=== PATIENT | male | born 1955 | race Caucasian/White ===

== ENCOUNTER 2017-06-02 06:17 | Inpatient (IN) ==
--- NOTE | 2017-06-01 16:04 | Discharge Summary ---
<Magali Shields - Last Filed: 06/01/17 16:02> Date of Encounter: 06/01/17 - Discharge Diagnosis (1) Osteoarthritis of knees, bilateral Priority: Primary Status: Chronic Qualifiers: Osteoarthritis type: unspecified Qualified Code(s): M17.0 - Bilateral primary osteoarthritis of knee (2) HTN (hypertension) Priority: Secondary Status: Chronic Qualifiers: Hypertension type: unspecified Qualified Code(s): I10 - Essential (primary ) hypertension (3) Obesity Priority: Secondary Status: Chronic Qualifiers: Obesity type: unspecified obesity type Obesity classification: unspecified obesity classification Serious obesity comorbidity presence: unspecified whether serious comorbidity present Qualified Code(s): E66.9 - Obesity, unspecified (4) Atrial fibrillation Priority: Secondary Status: Chronic Qualifiers: Atrial fibrillation type: unspecified Qualified Code(s): I48.91 - Unspecified atrial fibrillation (5) BRETT on CPAP Priority: Secondary Status: Chronic (6) Tobacco dependency Priority: Secondary Status: Chronic - Discharge Medications Home Medications: Aspirin Enteric Coated [Aspirin EC] 325 mg PO DAILY 21 Days #21 tablet.dr [Rx] OxyCODONE Immed Rel [Roxicodone 5 MG] 5 mg PO Q6HR PRN 7 Days #28 tablet [Rx] Aspirin 325 mg PO DAILY 06/02/17 [History] Diltiazem CD (24hr) [Cardizem CD] 240 mg PO DAILY 06/02/17 [History] Flecainide 100 mg PO Q12HR 06/02/17 [History] Lisinopril [Zestril] 40 mg PO DAILY 06/02/17 [History] Rivaroxaban [Xarelto] 20 mg PO DAILY 06/02/17 [History] Allergies/Adverse Reactions: 3 Allergy/AdvReac Type Severity Reaction Status Date / Time No Known Allergies Allergy Verified 06/02/17 06:37 Primary care physician: PCP NONE - Patient Status Disposition: Home, Self-Care Condition: Good - Discharge Instructions Follow Up With: Magali Shields PAC [Physician Benefits Analyst] - 06/12/17 1:45 pm () Jamie Verde MD [Partnered Physician] - 07/02/17 4:50 pm NONE,PCP [Primary Care Provider] - Additional Instructions: Discharge Instructions: Total Knee Replacement Please call [facility] ([phone]), your Primary Care Physician, or report to the Emergency Room if you have any of the following symptoms: Nausea, vomiting, fever greater that 101.5, swelling, chest pain, shortness of breath, increased pain/redness/drainage/odor for your incision site, numbness/ tingling, or any other concerning symptoms. ACTIVITY:Weight-bearing as tolerated. You may progress off support (crutches or walker) as tolerated. MEDICATIONS: Upon discharge resume your home medications. Take all the medications as prescribed. Take a stool softener if taking narcotic pain medications. Stool softeners are only effective if you drink enough fluids. Drink 6-8 glass of water or fluids a day, unless this is not allowed for another health problem. Despite using stool softeners, if you haven't had a bowel movement in 3 days, please switch to a gentle laxative. Gentle laxatives are sold over the counter. You should have a bowel movement within 24 hours, if not call the office. You will be discharged from the hospital with a prescription for pain medication. You are encouraged to decrease the use of narcotic pain medication as tolerated. Should you require a refill, please call the office. [facility] prescribes narcotic pain medication for only 4-6 weeks after surgery. If you require pain medication beyond this time period, you may be referred to your Primary Care Physician or to the Pain Clinic for further evaluation. Plan ahead for refills on pain medication as many narcotics either need to be picked up at the office or mailed. It is best to call 48-72 hours in advance of needing a prescription refill so you don't run out of medication. To help control the post-operative pain, you may take NSAIDs (Aleve,Advil, Motrin, Ibuprofen, Naprosyn) or Tylenol as prescribed on the bottle in addition to the pain medication. ANTICOAGULATION (blood thinners): Continue your Aspirin, Lovenox or Coumadin as prescribed to help prevent a blood clot in the leg or in the lungs. As long as your incision remains dry and you tolerate the NSAIDs (Aleve, Advil, Motrin, ibuprofen, naprosyn), it is OK to use the NSAIDS while you are taking your anticoagulation medication. Should your incision start to drain, stop the NSAID and contact our office. Common symptoms of blood clot in the legs include: localized pain, swelling, calf tenderness, redness or discoloration of the skin. Blood clot in the lung symptoms include: shortness of breath, rapid pulse, sweating, and chest pain that worsens with deep breathing, coughing up blood, lightheadedness, feelings of anxiety. If you experience any of these symptoms notify your physician immediately, go to the emergency room, or if having trouble breathing, call 911. WOUND CARE: Leave the dressing on for 7 to 10days. You may change the dressing if it becomes saturated greater than 50%. Do not get the dressing wet at anytime. Wash your hands with antibacterial soap, rinse and dry prior to any wound care. If you have nahid the visiting nurse or rehab facility can remove the stapes 10-14 days after surgery and place steri-strips across the wound. Leave the steri-strips in place until they fall off on their won. You may let water from the shower run on top of the steri-strips. If you do not have a visiting nurse or rehab facility, you will need to return to the office at 10-14 days for the nahid to be removed. If you have itching or redness around the dressing call the office. FOLLOW-UP: Please follow up with your surgeon in the orthopedic clinic in 4 weeks from the day of surgery. If you have nahid that need to be removed, you will need to come back to the office in 10-14 days from the day of surgery. - Hospital Course Hospital course: Mr. Hamilton is a 61 year old male - Time Spent with Patient Total time spent providing and/or coordinating discharge services: <Jamie Verde - Last Filed: 06/09/17 06:56> Date of Encounter: 06/09/17 Time of Encounter: 06:54 - Discharge Diagnosis (1) Morbid obesity with BMI of 40.0-44.9, adult Priority: Secondary Status: Chronic (2) Osteoarthritis of knees, bilateral Priority: Primary Status: Chronic Qualifiers: Osteoarthritis type: unspecified Qualified Code(s): M17.0 - Bilateral primary osteoarthritis of knee (3) HTN (hypertension) Priority: Secondary Status: Chronic Qualifiers: Hypertension type: unspecified Qualified Code(s): I10 - Essential (primary ) hypertension (4) Atrial fibrillation Priority: Secondary Status: Chronic Qualifiers: Atrial fibrillation type: unspecified Qualified Code(s): I48.91 - Unspecified atrial fibrillation (5) BRETT on CPAP Priority: Secondary Status: Chronic (6) Tobacco dependency Priority: Secondary Status: Chronic (7) Status post bilateral knee replacements Priority: Primary Status: Acute (8) Acute blood loss anemia Priority: Primary Status: Acute (9) Chronic kidney disease (CKD) stage G1/A1, glomerular filtration rate (GFR) equal to or greater than 90 mL/min/1.73 square meter and albuminuria creatinine ratio less than 30 mg/g Priority: Secondary Status: Chronic (10) Hemolytic anemia Priority: Secondary Status: Chronic Qualifiers: Hemolytic anemia type: acquired, autoimmune, other Qualified Code(s): D59.1 - Other autoimmune hemolytic anemias (11) Status post total bilateral knee replacement Priority: Primary Status: Acute Primary care physician: PCP NONE - Patient Status Functional capacity at discharge: uses cane/walker Overall status at discharge: patient is progressing back to baseline - Hospital Course Hospital course: Mr. Hamilton is a 61 year old male s/p bilateral total knee replacements Patient hematocrit dropped to 22 patient evaluated by oncology has history of hemolytic anemia significant reaction transfusion was recommended to be held unless hemoglobin drop of 7. Patient at discharge hemoglobin is 7.5. Patient minimal symptoms secondary to acute blood loss anemia. Otherwise patient did well received antibiotics and physical therapy was discharged in stable condition. - Time Spent with Patient Total time spent providing and/or coordinating discharge services:
--- NOTE | 2017-06-01 16:16 | Physician Discharge Referral ---
ExtendedCare Referral Info Transfer To: [facility] Provider in Charge: Dr Jamie Verde - Diagnosis (1) Osteoarthritis of knees, bilateral Priority: Primary Status: Chronic (2) HTN (hypertension) Priority: Secondary Status: Chronic (3) Obesity Priority: Secondary Status: Chronic (4) Atrial fibrillation Priority: Secondary Status: Chronic (5) BRETT on CPAP Priority: Secondary Status: Chronic (6) Tobacco dependency Priority: Secondary Status: Chronic (7) Status post bilateral knee replacements Priority: Primary Status: Acute (8) Hemolytic anemia Priority: Secondary Status: Chronic (9) Acute blood loss anemia Priority: Primary Status: Acute Expected Duration of Placement: less than 30 days Prognosis: Good Aware of Diagnosis: Patient Aware of Prognosis: Patient - Transfer Medications Home Medications: Aspirin Enteric Coated [Aspirin EC] 325 mg PO DAILY 21 Days #21 tablet. [Rx] OxyCODONE Immed Rel [Roxicodone 5 MG] 5 mg PO Q6HR PRN 7 Days #28 tablet [Rx] Aspirin 325 mg PO DAILY 06/02/17 [History] Diltiazem CD (24hr) [Cardizem CD] 240 mg PO DAILY 06/02/17 [History] Flecainide 100 mg PO Q12HR 06/02/17 [History] Lisinopril [Zestril] 40 mg PO DAILY 06/02/17 [History] Rivaroxaban [Xarelto] 20 mg PO DAILY 06/02/17 [History] Allergies/Adverse Reactions: 3 Allergy/AdvReac Type Severity Reaction Status Date / Time No Known Allergies Allergy Verified 06/02/17 06:37 - Respiratory Orders Smoking Cessation: Smoking cessation has been advised. For more information, call the [place] Tobacco Quit Line at 3-301-RYUP-NOW. - Lab Orders Lab Orders: CBC (Patient with history of hemolytic anemia and since surgery, postoperative anemia) - Ancillary Orders May use pressure relief devices daily prn, May go on YOLANDA w/family/respon alliance party w /meds at nurse discretion PRN, May consult with Dentist, Fast Food Server, Motorcycle Designer PRN - Mobility Orders Chair, Ambulate - Rehabiliation Orders Rehab Potential: Good Rehab Orders: Evaluation for Physical Therapy, Evaluation for Occupational Therapy Other: Total Knee replacement Precautions x 6 weeks Apply cold therapy wrap 3-6x/day for 20 minutes at a time. Encourage ambulation throughout the day and incentive spirometer 10x/hour. Elevate affected extremity above heart as tolerated. Brace: Wear knee immobilizer at night x 2 weeks. - Treatments Skin tear care topically daily PRN per policy List/Other: Opsite placed. Keep dressing intact until first follow up appointment. If > 50% saturated, notify office, remove dressing and place appropriate dressing back in place. Leave Zipline intact. Opsite dressing is water resistant, not water- proof. OK to shower, but do not get dressing wet. - Diet Orders Regular CERTIFICATION: I certify that the transfer of the above named patient to an Extended Care Facility is necessary for the continuing treatment of the diagnosis listed. The above information is true and accurate reflection of patient's current condition. Confidential - Redisclosure prohibited without a patient's written consent.
[2017-06-02] MEDS ORDERED: Lidocaine -MPF 1% 2 ML VIAL ID ONE (06:26)
[2017-06-02] MEDS ORDERED: CeFAZolin Syr 3,000MG/30 ML 3,000 MG/30 ML SYRINGE IVPB ONE (06:26)
[2017-06-02] MEDS ORDERED: Albuterol 2.5 MG/3 ML NEBULIZER IH ONE ×2 (06:26→10:57)
[2017-06-02] MEDS ORDERED: Plasma-Lyte A (PH 7.4) 1,000 ML IVC SCH ×2 (06:30→11:00)
--- NOTE | 2017-06-02 06:59 | History & Physical Report ---
Date of Encounter: 06/02/17 Time of Encounter: 06:58 24 Hour HP Update - Instructions Instructions: If the History and Physical is less than 30 days old and was completed prior to A.M. admission and or procedure and has NOT been updated on calendar day of procedure please complete this update prior to performing procedure. - Update Patient reports changes in Medical Condition: No Changes in examination, assessment, or condition: No Changes in Medication: No Preop tests/diagnostics Reviewed: Yes Surgery Remains Indicated: Yes Consent for Planned Operative Procedure(s) Verified: Yes - Pre-Operative Checklist Preoperative Checklist Indicated: No Prophylactic Antibiotic Ordered: Yes Is VTE Prophylaxis Indicated?: Yes
[2017-06-02] MEDS ORDERED: Povidone-Iodine 5% 60 ML, Sodium Chloride IRRigation 500 ML IR ONE (08:15)
--- NOTE | 2017-06-02 08:38 | Anesthesia Evaluation PreOp ---
Date of Encounter: 06/02/17 Time of Encounter: 08:36 - Past History Planned Operation: Bilateral Total Knee Arthroplasty Cardiac History: HTN, Hyperlipidemia, Arrhythmia (H/O A-Fib) Pulmonary History: Smoker (40 years), BRETT Dx (uses CPAP) STITCHER HAND History: Denies Any Significant HX Other Medical History: Renal, Other (obesity BMI=43) Anesthesia History: No Prior Anesthetic Complications, Past Anesthesia Alcohol Use: occasionally Drug use: none Medications and Allergies Aspirin Enteric Coated [Aspirin EC] 325 mg PO DAILY 21 Days #21 tablet. [Rx] OxyCODONE Immed Rel [Roxicodone 5 MG] 5 mg PO Q6HR PRN 7 Days #28 tablet [Rx] Aspirin 325 mg PO DAILY 06/02/17 [History] Diltiazem CD (24hr) [Cardizem CD] 240 mg PO DAILY 06/02/17 [History] Flecainide 100 mg PO Q12HR 06/02/17 [History] Lisinopril [Zestril] 40 mg PO DAILY 06/02/17 [History] Rivaroxaban [Xarelto] 20 mg PO DAILY 06/02/17 [History] 3 Allergy/AdvReac Type Severity Reaction Status Date / Time No Known Allergies Allergy Verified 06/02/17 06:37 - Meds/Allergy Pre-op Review Medications Reviewed: Yes Allergies Reviewed: Yes Beta Blockers on Current Med List: No Anesthesia Results - Labs Laboratory Tests 05/21/17 05/21/17 05/21/17 13:54 13:54 13:54 WBC 6.8 Hgb 14.3 Hct 41.8 Plt Count 203 PT 10.7 INR 1.0 APTT 29.5 Sodium 139 Potassium 4.4 BUN 22 H Creatinine 1.36 H - Imaging EKG: report reviewed (05/21/2017 SINUS RHYTHM MODERATE INTRAVENTRICULAR CONDUCTION DELAY NONSPECIFIC ST & T-WAVE ABNORMALITY) Anesthesia Exam O2 Sat Height 1.78 m Height 1.78 m Weight 136.078 kg Weight 136.078 kg O2 Sat by Pulse Oximetry 98 O2 Sat by Pulse Oximetry 98 Vital Signs Temp Pulse Resp BP Pulse Ox 97.9 F 61 18 119/71 98 06/02/17 06:39 06/02/17 06:39 06/02/17 06:39 06/02/17 06:39 06/02/17 06:39 Height: 5'10" Weight: 300 lbs NPO (# of Hours): 8 Pain Scale: 5 (left knee) Pain Scale Used: Numeric (1 - 10) - HEENT Pupil (Motor): EOMI Mallampati: II Teeth: Normal Oral Opening: Greater than 3 - STITCHER HAND LOC: Oriented STITCHER HAND Motor: Normal RUE, Normal LUE, Normal RLE, Normal LLE, Normal Face STITCHER HAND Sensory: Normal: RUE, LUE, RLE, LLE, Face - Cardiac Rhythm: Regular Murmur: Systolic - Pulmonary Breath Sounds: bilateral Clear Respiratory Effort: Symmetrical Anesthesia Assess/Plan ASA Score: 3 Modified Karime Scale for Level of Consciousness: Cooperative, oriented, and tranquil Anesthetic Plan: General, Regional Monitoring Plan: Standard Monitors Recovery Plan: PACU
[2017-06-02] MEDS ORDERED: *HR* Propofol 200 MG/20 ML VIAL IVP ONE ×2 (08:57)
[2017-06-02] MEDS ORDERED: *HR* Midazolam HCl 2 MG/2 ML VIAL ONE (08:57)
[2017-06-02] MEDS ORDERED: Lidocaine -MPF 2% 2 ML VIAL ONE (08:57)
[2017-06-02] MEDS ORDERED: Ondansetron 4 MG/2 ML VIAL ONE (08:57)
[2017-06-02] MEDS ORDERED: Dexamethasone 4 MG/ML VIAL ONE (08:57)
[2017-06-02] MEDS ORDERED: *HR* FentaNYL (PF) 100 MCG/2 ML VIAL ONE ×3 (08:57→11:31)
[2017-06-02] MEDS ORDERED: *HR* Rocuronium Bromide 50 MG/5 ML VIAL ONE (09:00)
[2017-06-02] MEDS ORDERED: *HR* Succinylcholine 200 MG/10 ML VIAL IVP ONE (09:00)
[2017-06-02] MEDS ORDERED: Bupivacaine/Clonidine Syringe 1 EACH SYRINGE ONE (09:49)
[2017-06-02] MEDS ORDERED: Ethanol\\Acetic Acid\\Na Ace\\Ben 1,000 ML IRRIG.SOLN IR ONE (09:57)
--- NOTE | 2017-06-02 10:21 | Anesthesia Procedures ---
Date of Encounter: 06/02/17 Time of Encounter: 09:57 Procedures: Anesthesia - Nerve Block Procedure Date: 06/02/17 Time: 09:57 Allergies/Adv Reactions: nka Pre-op Diagnosis: bilateral knee arthritis Surgical Procedure: bilateral total knee Checklist: Correct Patient Identifier (with Bill Rogers SUPERVISOR ASSEMBLING), Correct procedure, History checked Correct side: Left (Bilateral) Blood Thinner: No Monitor Applied: EKG, BP, Pulse Oximetry Supplemental Oxygen via Nasal Cannula (L/min): 2 Sedation: Versed (mg): 2 Sedation: Fentanyl (mcg): 100 Indication: Post Op Analgesia Pre-op Neuro Deficits: No Block Type: Femoral Catheter placed: No Sterile Technique: Yes Ultrasound used: Yes Anatomy identified: Yes Visual spread of Local: Yes Neuro Stimulation: Yes Nerve Stimulator Range: 0.2 - 0.4 mA Blood on Needle Aspiration: No Smooth Injection of Local: Yes Pain with Injection of Local: No Prep: Chlorhexadine Needle: 22 x 50 mm Stimuplex, 21 x 100 mm Stimuplex Local: 0.25% Bupivicaine w/Clonidine 20 mcg/cc (40 ml for each leg) Volume (cc): 80 Number of Attempts: 1 Complications: None/effective block Vitals: see nurses notes Comments: patient tolerated well
[2017-06-02] MEDS ORDERED: EPHEDrine 50 MG/ML VIAL ONE ×2 (10:47→11:43)
[2017-06-02] MEDS ORDERED: Naloxone 0.4 MG/ML INJ IVP PRN ×2 (10:57→14:39)
[2017-06-02] MEDS ORDERED: Ondansetron 4 MG/2 ML VIAL IVP ONE (10:57)
--- NOTE | 2017-06-02 12:34 | Orthopedic Operative Note ---
Date of procedure: 06/02/17 Pre-op diagnosis: Bilateral knee arthritis Post-op diagnosis: same Procedure: Procedure: Bilateral robotic-assisted Total knee replacement Estimated blood loss: 800 cc Hardware: Metal and polyethylene replacement. Mimbres Femur: 6 Tibia: 7 TS insert: 9 Patella: 339 Exam Under anesthesia: Left knee flexion contracture 8 degrees varus 5 degrees, right knee flexion contracture 7 degrees 3 degrees varus as calculated by the robot full flexion and no instability Procedural Notes: Grade 4 arthritic changes all 3 compartments in both knees. Operative procedure: The patient was brought to the operating room and placed on the operating room table. After general anesthesia was administered the operative knee was examined. Findings were noted in the exam under anesthesia. The operative extremity was prepped and draped in sterile surgical fashion. Surgery began with the left knee followed by the right knee. Any differences will be highlighted. The patient received IV antibiotics prior to skin incision. A standard midline incision was made centered over the patella. The incision was made through the skin and subcutaneous tissue. A medial parapatellar tendon approach was performed. Care was taken to preserve tissue along the medial aspect of the patella. And to protect the patella tendon. The deep MCL was released off the medial tibia. The infra patella fat pad was excised. The patella was everted and cut was made at the level of the insertion of the quadriceps and patella tendon. The patella was sized to 39 bilaterally the guide was seated and the lug holes are drilled. Knee was brought into flexion. Patient noted to have grade 4 arthritic changes in both knees. In all 3 compartments. Steinmann pins were placed in the tibia and the femur for the tibial and femoral arrays respectively. Checkpoints were also placed in the tibia and the femur for calculation purposes. The knee including the femur and the tibial registered. Osteophytes , ACL and PCL were excised at this point. Extension and flexion were assessed with a valgus stress components were adjusted on the computer to balance the knee. Femoral cuts were made first with robotic assistance, these included the anterior cut posterior cuts chamfer cuts. Tibial cut was then performed with robotic assistance as well. Bone fragments were removed, as well as the medial and lateral meniscus. The size 6 femoral guide was seated box cut was made lug holes are drilled. The size 7 tibial tray was seated and prepared with the fin cutter. Trial reduction with the 9 TS Mignon revealed extension loss of 2 degree in either knee and full flexion. No varus valgus instability. Trial reduction revealed excellent patella tracking. All trial components were removed all bony surfaces were irrigated. The Tibia was seated followed by the femur, The Mignon size 9 was seated and secured patella was seated. Patient had similar findings for motion and stability. The knee was closed by the PA. The knee was then irrigated out with 2 L of pulse irrigation. The extensor mechanism was closed with #2 FiberWire suture and #2 PDS suture. The subcutaneous tissue was then irrigated and closed deep with #1 PDS suture superficially with 0 PDS suture and skin was closed with zip tie The patient was then placed in a sterile dressing and a postoperative brace extubated and transferred to recovery room in stable condition. Anesthesia: GETA Surgeon: Jamie Verde Was there an commercial lending assistant present: Yes Hedge Fund Trader: Magali Shields Estimated blood loss (cc): 800 Condition: stable Disposition: PACU
[2017-06-02] MEDS: *HR* HYDROmorphone (PF) 1 MG/ML SYRINGE IVP PRN ×6 (13:19→13:52)
[2017-06-02] MEDS ORDERED: Ringers Solution, Lactated 1,000 ML ONE (13:47)
[2017-06-02 13:53] LABS: Hematocrit 37.4 % (37.5-50.1); Hemoglobin 12.5 g/dL (12.9-16.9)
--- NOTE | 2017-06-02 14:04 | Anesthesia Evaluation Post Op ---
Date of Encounter: 06/02/17 Time of Encounter: 14:03 - Vital Signs Vital Signs: Selected Entries 06/02/17 13:40 06/02/17 13:50 Temperature 98.0 F Pulse Rate 74 Respiratory Rate 18 Blood Pressure 126/77 O2 Sat by Pulse Oximetry 94 Oxygen Flow Rate (LPM) 2 - Lungs Lungs: Clear Ascult./Percussion - Airway Airway: Non-obstructed - Cardiovascular Regular Rate - Mental Status Mental Status: Alert & Oriented, Answers Appropriately - Pain Pain Scale: 5 Pain Scale used: Numeric (1 - 10) - Nausea Vomiting Nausea Vomiting: Not Present - Hydration Hydration: Ice chips, Has not voided - Discharge PostOp Status: Transfer Patient to floor
[2017-06-02] MEDS ORDERED: Sennosides 8.6 MG TABLET PO PRN (14:39)
[2017-06-02] MEDS ORDERED: Temazepam 15 MG CAPSULE PO PRN (14:39)
[2017-06-02] MEDS ORDERED: MOM Conc 10 ML UD.LIQ PO PRN (14:39)
[2017-06-02] MEDS ORDERED: Ondansetron 4 MG/2 ML VIAL IVP PRN (14:39)
[2017-06-02] MEDS: Diltiazem CD (24hr) 240 MG CAPSULE PO SCH (16:08)
[2017-06-02] MEDS: Lisinopril 20 MG TABLET PO SCH (16:48)
[2017-06-02] MEDS: *HR* OxyCODONE Immed Rel 15 MG TABLET PO PRN ×2 (16:52→21:22)
[2017-06-02] MEDS: *HR* Rivaroxaban 10 MG TABLET PO SCH (16:52)
[2017-06-02] MEDS: Aspirin 325 MG TABLET PO SCH (16:53)
[2017-06-02] MEDS: CeFAZolin Syr 3,000MG/30 ML 3,000 MG/30 ML SYRINGE IVPB SCH (23:38)
[2017-06-03] MEDS ORDERED: ceFAZolin 3,000 MG in D5% in Water 100 ML IVPB SCH
[2017-06-03] MEDS: *HR* OxyCODONE Immed Rel 15 MG TABLET PO PRN ×5 (01:01→21:34)
[2017-06-03 06:39] LABS: Calcium 8.4 mg/dL (8.6-10.3); Potassium 4.7 mEq/L (3.5-5.1)
[2017-06-03 06:44] LABS: Hemoglobin 10.6 g/dL (12.9-16.9)
--- NOTE | 2017-06-03 07:04 | Orthopedics Progress Note ---
Date of Encounter: 06/03/17 Time of Encounter: 07:03 - Assessment and Plan (1) Morbid obesity with BMI of 40.0-44.9, adult Current Visit: Yes Status: Chronic (2) Osteoarthritis of knees, bilateral Current Visit: No Status: Chronic Qualifiers: Osteoarthritis type: unspecified Qualified Code(s): M17.0 - Bilateral primary osteoarthritis of knee (3) HTN (hypertension) Current Visit: No Status: Chronic Qualifiers: Hypertension type: unspecified Qualified Code(s): I10 - Essential (primary ) hypertension (4) Atrial fibrillation Current Visit: No Status: Chronic Qualifiers: Atrial fibrillation type: unspecified Qualified Code(s): I48.91 - Unspecified atrial fibrillation (5) BRETT on CPAP Current Visit: No Status: Chronic (6) Tobacco dependency Current Visit: No Status: Chronic (7) Status post bilateral knee replacements Current Visit: No Status: Acute (8) Acute blood loss anemia Current Visit: Yes Status: Acute Subjective Interval history: Patient was seen this morning doing well without complaints. Afebrile vital signs stable. Operative extremity: Neurovascularly intact Dressing bloody, both dressings changed Calves nontender Assessment and plan: Continue with postoperative care Hematocrit 31 Objective Vital signs: Vital Signs Temp Pulse Resp BP Pulse Ox 06/03/17 06:42 98.8 F 73 15 117/66 95 06/03/17 04:27 98.3 F 64 18 101/59 98 06/02/17 23:59 98.4 F 68 16 100/58 97 06/02/17 19:35 97.6 F 70 18 126/55 95 06/02/17 17:55 97.6 F 76 16 100/56 96 06/02/17 17:01 97.6 F 66 18 115/76 94 06/02/17 15:49 97.9 F 69 17 119/76 94 06/02/17 15:14 97.7 F 67 16 116/70 94 06/02/17 14:45 97.6 F 74 16 110/69 95 06/02/17 14:40 97.6 F 74 16 110/69 95 06/02/17 14:20 76 18 128/76 94 06/02/17 14:10 98.0 F 78 16 121/71 96 06/02/17 14:00 68 18 117/74 93 06/02/17 13:50 74 18 126/77 94 06/02/17 13:40 98.0 F 76 18 131/83 96 06/02/17 13:30 83 22 118/89 94 06/02/17 13:20 84 20 115/78 96 06/02/17 13:10 98.3 F 81 20 128/78 96 06/02/17 10:20 54 18 102/59 93 06/02/17 09:48 61 18 117/69 99 Intake and Output 06/02/17 06/02/17 06/03/17 15:59 23:59 07:59 Intake Total 530 / 530 0 / 0 Output Total 800 / 800 600 / 600 425 / 425 Balance -800 / -800 -70 / -70 -425 / -425 Intake: Oral 530 / 530 0 / 0 Output: Urine 0 / 0 600 / 600 425 / 425 Estimated Blood Loss 800 / 800 - Labs CBC & BMP: 06/03/17 06:17 06/03/17 06:17 Labs: Abnormal lab results Hgb 10.6 g/dL (12.9-16.9) L D 06/03/17 06:17 Hct 31.0 % (37.5-50.1) L 06/03/17 06:17 BUN 36 mg/dL (6-20) H 06/03/17 06:17 Creatinine 2.15 mg/dL (0.70-1.30) H 06/03/17 06:17 Est GFR ( Amer) 38 (> 60) L 06/03/17 06:17 Est GFR (Non-Af Amer) 32 (> 60) L 06/03/17 06:17 Glucose 124 mg/dL (70-105) H 06/03/17 06:17 Calcium 8.4 mg/dL (8.6-10.3) L 06/03/17 06:17 - VTE Documentation of Mechanical Device: Venous foot pump, device Consult Discharge Plan - Plan Referrals: NONE,PCP [Primary Care Provider] -
[2017-06-03] MEDS ORDERED: Water for inj. (sterile) 30 ML IV ONE (08:36)
[2017-06-03] MEDS: Diltiazem CD (24hr) 240 MG CAPSULE PO SCH (08:40)
[2017-06-03] MEDS: Aspirin 325 MG TABLET PO SCH (08:40)
[2017-06-03] MEDS: *HR* Rivaroxaban 10 MG TABLET PO SCH (08:40)
[2017-06-03] MEDS: Lisinopril 20 MG TABLET PO SCH (08:40)
[2017-06-03] MEDS: CeFAZolin Syr 3,000MG/30 ML 3,000 MG/30 ML SYRINGE IVPB SCH (08:44)
[2017-06-03] MEDS: Mag Hydrox/Al Hydrox/Simeth 30 ML UDC PO PRN ×2 (13:29→21:29)
--- NOTE | 2017-06-03 17:03 | Event Note ---
Date of Encounter: 06/03/17 Time of Encounter: 12:00 PCR- POD#1 s/p bl TKR robotic Ammon 06/02/17 PCR - Patient seen at bedside. Pain control: Adequate. Requesting additional breakthrough meds - will trial Cyclobenzaprine Participating in PT. All questions and concerns addressed. Educated on use of incentive spirometer, ambulation, and hydration. Patient educated on post-operative restrictions and care. Addressed: Reflux and belching - patient states been going on since last night - recommended trial Pepcid and Maalox PRN. Right knee dressing saturated - nursing staff applied pressure dressing. Requested change every 6 hours, once drainage stops, cleanse incision and apply honeycomb dressing. D/C plan: ECF - poss tomorrow if continues to improve and auth obtained.
[2017-06-03] MEDS: Ringers Solution, Lactated 1,000 ML IVC SCH (21:29)
[2017-06-04] MEDS: *HR* OxyCODONE Immed Rel 15 MG TABLET PO PRN ×5 (01:48→23:45)
[2017-06-04 05:40] LABS: Hematocrit 27.5 % (37.5-50.1)
[2017-06-04 05:45] LABS: Calcium 8.5 mg/dL (8.6-10.3); Potassium 4.6 mEq/L (3.5-5.1)
[2017-06-04] MEDS: Lisinopril 20 MG TABLET PO SCH (08:36)
--- NOTE | 2017-06-04 08:39 | Orthopedics Progress Note ---
Date of Encounter: 06/04/17 Time of Encounter: 08:39 - Assessment and Plan (1) Morbid obesity with BMI of 40.0-44.9, adult Current Visit: Yes Status: Chronic (2) Osteoarthritis of knees, bilateral Current Visit: No Status: Chronic Qualifiers: Osteoarthritis type: unspecified Qualified Code(s): M17.0 - Bilateral primary osteoarthritis of knee (3) HTN (hypertension) Current Visit: No Status: Chronic Qualifiers: Hypertension type: unspecified Qualified Code(s): I10 - Essential (primary ) hypertension (4) Atrial fibrillation Current Visit: No Status: Chronic Qualifiers: Atrial fibrillation type: unspecified Qualified Code(s): I48.91 - Unspecified atrial fibrillation (5) BRETT on CPAP Current Visit: No Status: Chronic (6) Tobacco dependency Current Visit: No Status: Chronic (7) Status post bilateral knee replacements Current Visit: No Status: Acute (8) Acute blood loss anemia Current Visit: Yes Status: Acute Subjective Interval history: Patient was seen this morning doing well without complaints. Afebrile vital signs stable. Operative extremity: Neurovascularly intact Dressing bloody, both dressings changed Calves nontender Assessment and plan: Continue with postoperative care Hematocrit 27 transfuse 2 units packed red blood cells Objective Vital signs: Vital Signs Temp Pulse Resp BP Pulse Ox 06/04/17 07:30 98.3 F 68 18 103/57 98 06/04/17 05:09 98.2 F 94 17 109/52 100 06/04/17 00:09 98.3 F 74 17 120/66 96 06/03/17 19:34 98.5 F 80 15 113/54 94 06/03/17 15:00 98.1 F 71 15 114/61 96 06/03/17 10:35 98.5 F 82 15 124/74 97 Intake and Output 06/03/17 06/04/17 06/04/17 23:59 07:59 15:59 Intake Total 240 / 240 Output Total 420 / 420 1260 / 1260 Balance -180 / -180 -1260 / -1260 Intake: Oral 240 / 240 Output: Urine 420 / 420 1260 / 1260 Other: Meal Dinner Percent of Meal Consumed 100% - Labs CBC & BMP: 06/04/17 05:00 06/04/17 05:00 Labs: Abnormal lab results Hgb 9.0 g/dL (12.9-16.9) L D 06/04/17 05:00 Hct 27.5 % (37.5-50.1) L 06/04/17 05:00 Sodium 135 mEq/L (136-145) L 06/04/17 05:00 BUN 43 mg/dL (6-20) H 06/04/17 05:00 Creatinine 2.07 mg/dL (0.70-1.30) H 06/04/17 05:00 Est GFR ( Amer) 40 (> 60) L 06/04/17 05:00 Est GFR (Non-Af Amer) 33 (> 60) L 06/04/17 05:00 Glucose 117 mg/dL (70-105) H 06/04/17 05:00 Calcium 8.5 mg/dL (8.6-10.3) L 06/04/17 05:00 - VTE Documentation of Mechanical Device: Venous foot pump, device Consult Discharge Plan - Plan Referrals: NONE,PCP [Primary Care Provider] -
[2017-06-04] MEDS: Aspirin 325 MG TABLET PO SCH (08:42)
[2017-06-04] MEDS: Diltiazem CD (24hr) 240 MG CAPSULE PO SCH (08:42)
[2017-06-04] MEDS ORDERED: Furosemide 20 MG/2 ML VIAL IVP PRN (08:43)
[2017-06-04] MEDS ORDERED: 0.9 % Sodium Chloride 250 ML IVC SCH (08:45)
--- NOTE | 2017-06-04 15:00 | Event Note ---
Date of Encounter: 06/04/17 Time of Encounter: 12:00 PCR- POD#2 s/p bl TKR cam Verde 06/02/17 PCR - Patient seen at bedside. Pain control: Adequate but still requesting additional breakthrough meds - Cyclobenzaprine helping Labs: H/H - 9.0/27.5 - plan for 2 units RBC transfusion. Patient states he does have hemolytic anemia and has been told in the past that he required prednisone with previous transfusions. Attempted to contact his previous managing provider for treatment recommendations but patient has not been seen there since 2011 and they would not offer assistance without seeing patient. DIEUDONNE David spoke with [facility] and they agreed to evaluate patient for further treatment recommendations before he receives the transfusion. Awaiting 2 units of RBC without antibodies from [facility]. Participating in PT. All questions and concerns addressed. Educated on use of incentive spirometer, ambulation, and hydration. Patient educated on post-operative restrictions and care. Addressed: Reflux and belching yesterday improved with Pepcid and Maalox PRN. Coughing spell he mentioned yesterday likely related to the reflux. He does have new left calf tenderness to palpation today. Will order doppler for possible DVT. D/C plan: MADISON Ibarra - jessica tomorrow, auth obtained.
[2017-06-04 15:37] LABS: Bilirubin,Urine Negative (Negative); Blood,Urine Negative (Negative); Clarity,Urine Clear (Clear); Color,Urine Yellow (Yellow); Glucose,Urine (UA) Normal (Normal); Ketones,Urine Negative (Negative); Leukocyte Esterase,Urine Negative (Negative); Nitrite,Urine Negative (Negative); Protein,Urine Trace mg/dL (Neg-Trace); Urobilinogen,Urine Normal (Normal)
[2017-06-04 15:39] LABS: Bacteria,Urine None Seen per hpf (None-Few); Hyaline Casts,Urine None Seen per lpf (None-Few); RBC,Urine 0-3 per hpf (0-3); Squamous Epithelial Cell,Urine None Seen per lpf (None-Few); WBC,Urine 0-3 per hpf (0-3)
[2017-06-04] MEDS: Ringers Solution, Lactated 1,000 ML IVC SCH (16:25)
[2017-06-04 16:48] LABS: Immature Reticulocyte % 18.4 % (11.0-38.0); Retculocyte # 0.04 M/mcL (0.05-0.10); Reticulocyte % 1.5 % (1.6-2.8)
[2017-06-04] MEDS: *HR* Rivaroxaban 15 MG TABLET PO SCH (18:04)
--- NOTE | 2017-06-04 21:35 | Oncology Inp Consult Note ---
Date of Encounter: 06/04/17 Time of Encounter: 17:00 Assessment and Plan (1) Acute blood loss anemia Status: Acute Assessment and plan: Blood loss anemia secondary to bilateral TKA 06/02/17. LDH is normal making hemolysis very unlikely. No need for therapy. Awaiting haptoglobin to complete workup. Would avoid transfusion secondary to history as well as associated immune effects related to blood transfusion seen in surgery. Would only transfuse if hemoglobin <7 and with symptoms. - Data of Consult Requesting Physician: Jamie Verde MD Primary Care Provider: PCP NONE - Consult Narrative Reason for consult: Anemia History of present illness: Mr. 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 He underwent bilateral knee replacement 06/02/17 with 800 cc blood loss. Hemoglobin decreased from a preop value of 12 to 9. Has had minimal oozing of blood from his right knee wound, but denies any other bleeding. No epistaxis, hemoptysis, hematemesis, melena or hematochezia. No easy bruising. Secondary to his history of anemia, consult hs been requested. Past Med Surg Social Fam HX - Past Medical History Medical history: atrial fibrillation, hypertension Psychiatric history: no psych history - Past Surgical History Surgical History: herniorrhaphy - Social History Smoking Status: Current every day smoker Smokeless Tobacco Status: No Alcohol use: occasionally Drug use: none Medications and Allergies Aspirin Enteric Coated [Aspirin EC] 325 mg PO DAILY 21 Days #21 tablet. [Rx] OxyCODONE Immed Rel [Roxicodone 5 MG] 5 mg PO Q6HR PRN 7 Days #28 tablet [Rx] Aspirin 325 mg PO DAILY 06/02/17 [History] Diltiazem CD (24hr) [Cardizem CD] 240 mg PO DAILY 06/02/17 [History] Flecainide 100 mg PO Q12HR 06/02/17 [History] Lisinopril [Zestril] 40 mg PO DAILY 06/02/17 [History] Rivaroxaban [Xarelto] 20 mg PO DAILY 06/02/17 [History] 3 Allergy/AdvReac Type Severity Reaction Status Date / Time No Known Allergies Allergy Verified 01/15/18 06:37 All systems: reviewed and no additional remarkable complaints except as stated Constitutional: Present: fatigue Eyes: Present: as per HPI Ears: Present: as per HPI Nose, mouth and throat: Present: as per HPI Cardiovascular: Present: dyspnea on exertion Respiratory: Present: as per HPI Gastrointestinal: Present: as per HPI Musculoskeletal: Present: myalgias, stiffness Neurological: Present: as per HPI Hematologic/Lymphatic: Present: as per HPI Oncology - Exam - Constitutional Vitals: Temp Pulse Resp BP Pulse Ox 99.0 F 67 18 113/46 97 06/04/17 19:36 06/04/17 19:36 06/04/17 19:36 06/04/17 19:36 06/04/17 19:36 General appearance: cooperative, no acute distress - Head Head exam: Present: atraumatic, normal inspection, normocephalic - Eye Eye exam: Present: conjuntiva pink, sclera anicteric - ENT ENT exam: Present: mucous membranes moist, normal exam - Neck Neck exam: Present: full ROM, normal inspection - Respiratory Respiratory exam: Present: CTAB - Cardiovascular Cardiovascular exam: Present: RRR - GI/Abdominal GI/Abdominal exam: Present: normal bowel sounds, soft - Extremities Exam Extremities exam: Present: normal inspection, pedal edema - Neurological Exam Neurological exam: Present: alert, CN II-XII intact, oriented X3, no focal deficits - Skin Skin exam: Present: normal color, warm Oncology - Results Labs: Laboratory Results - last 24 hr 06/04/17 06/04/17 06/04/17 05:00 05:00 09:35 Hgb 9.0 L D Hct 27.5 L Reticulocyte # Percent Retic Immature Retic Fraction Retic Hgb Equivalent Sodium 135 L Potassium 4.6 Chloride 107 Carbon Dioxide 24 BUN 43 H Creatinine 2.07 H Est GFR ( Amer) 40 L Est GFR (Non-Af Amer) 33 L BUN/Creatinine Ratio 21 Glucose 117 H Calculated Osmolality 292 Calcium 8.5 L Lactate Dehydrogenase Urine Color Urine Clarity Urine pH Ur Specific [place] Urine Protein Urine Glucose (UA) Urine Ketones Urine Blood Urine Nitrite Urine Bilirubin Urine Urobilinogen Ur Leukocyte Esterase Urine Microscopic RBC Urine Microscopic WBC Ur Squamous Epith Cells Urine Bacteria Hyaline Casts Blood Type O POSITIVE Antibody Screen NEGATIVE Crossmatch See Detail 06/04/17 06/04/17 06/04/17 15:10 16:24 16:24 Hgb Hct Reticulocyte # 0.04 L Percent Retic 1.5 L Immature Retic Fraction 18.4 Retic Hgb Equivalent 36.5 H Sodium Potassium Chloride Carbon Dioxide BUN Creatinine Est GFR ( Amer) Est GFR (Non-Af Amer) BUN/Creatinine Ratio Glucose Calculated Osmolality Calcium Lactate Dehydrogenase 165 Urine Color Yellow Urine Clarity Clear Urine pH 6.0 Ur Specific [place] 1.010 Urine Protein Trace Urine Glucose (UA) Normal Urine Ketones Negative Urine Blood Negative Urine Nitrite Negative Urine Bilirubin Negative Urine Urobilinogen Normal Ur Leukocyte Esterase Negative Urine Microscopic RBC 0-3 Urine Microscopic WBC 0-3 Ur Squamous Epith Cells None Seen Urine Bacteria None Seen Hyaline Casts None Seen Blood Type Antibody Screen Crossmatch Consult Discharge Plan - Plan Referrals: NONE,PCP [Primary Care Provider] -
[2017-06-05 04:02] LABS: Hematocrit 23.5 % (37.5-50.1); Hemoglobin 7.8 g/dL (12.9-16.9)
[2017-06-05] MEDS: Ringers Solution, Lactated 1,000 ML IVC SCH (05:18)
[2017-06-05] MEDS: *HR* OxyCODONE Immed Rel 15 MG TABLET PO PRN (05:42)
[2017-06-05] MEDS: Diltiazem CD (24hr) 240 MG CAPSULE PO SCH (09:07)
[2017-06-05] MEDS: Aspirin 325 MG TABLET PO SCH (09:07)
[2017-06-05] MEDS: Lisinopril 20 MG TABLET PO SCH (09:08)
[2017-06-05] MEDS: *HR* OxyCODONE Immed Rel 5 MG TABLET PO PRN ×2 (09:50→17:11)
--- NOTE | 2017-06-05 09:55 | Orthopedics Progress Note ---
Date of Encounter: 06/05/17 Time of Encounter: 08:00 - Assessment and Plan (1) Osteoarthritis of knees, bilateral Current Visit: Yes Status: Chronic Qualifiers: Osteoarthritis type: unspecified Qualified Code(s): M17.0 - Bilateral primary osteoarthritis of knee (2) HTN (hypertension) Current Visit: No Status: Chronic Qualifiers: Hypertension type: unspecified Qualified Code(s): I10 - Essential (primary ) hypertension (3) Obesity Current Visit: No Status: Chronic Qualifiers: Obesity type: unspecified obesity type Obesity classification: unspecified obesity classification Serious obesity comorbidity presence: unspecified whether serious comorbidity present Qualified Code(s): E66.9 - Obesity, unspecified (4) Atrial fibrillation Current Visit: No Status: Chronic Qualifiers: Atrial fibrillation type: unspecified Qualified Code(s): I48.91 - Unspecified atrial fibrillation (5) BRETT on CPAP Current Visit: No Status: Chronic (6) Tobacco dependency Current Visit: No Status: Chronic (7) Status post bilateral knee replacements Current Visit: No Status: Acute (8) Hemolytic anemia Current Visit: Yes Status: Chronic Qualifiers: Hemolytic anemia type: acquired, autoimmune, other Qualified Code(s): 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 Objective: Afebrile vital signs stable. Patient sitting in chair comfortably, alert and oriented - family at bedside Operative extremities: Neurovascularly intact Dressings with serous drainage - will change both before patient's discharge - anticipated today Incisions intact Calves nontender with reduced swelling Assessment: POD#3 Bilateral TKA robotic assisted Ammon 06/02/17 Plan: Continue with postoperative care Hgb 7.8/ Hematocrit 23.5 --- Dr. Jarquin on board - no transfusion unless <7 and symptomatic. Discharge today to [facility] pending insurance authorization. Objective Vital signs: Vital Signs Temp Pulse Resp BP Pulse Ox 06/05/17 07:15 98.8 F 70 17 100/52 94 06/05/17 03:49 98.6 F 67 18 116/63 97 06/05/17 00:16 98.9 F 71 20 115/50 95 06/04/17 19:36 99.0 F 67 18 113/46 97 06/04/17 17:03 98.4 F 06/04/17 13:36 99.1 F 71 16 125/62 97 Intake and Output 06/04/17 06/05/17 06/05/17 23:59 07:59 15:59 Intake Total 240 / 240 1300 / 1300 Output Total 970 / 970 920 / 920 400 / 400 Balance -730 / -730 380 / 380 -400 / -400 Intake: IV Fluids 1000 / 1000 Lactated Ringers 1,000 ML @ 75 1000 / 1000 mls/hr IVC .[id number] JAYDEN Rx#: [id number] Oral 240 / 240 300 / 300 Output: Urine 970 / 970 920 / 920 400 / 400 Other: Meal Dinner Percent of Meal Consumed 100% - Labs CBC & BMP: 06/05/17 03:24 06/04/17 05:00 Labs: Abnormal lab results Hgb 7.8 g/dL (12.9-16.9) L 06/05/17 03:24 Hct 23.5 % (37.5-50.1) L 06/05/17 03:24 Reticulocyte # 0.04 M/mcL (0.05-0.10) L 06/04/17 16:24 Percent Retic 1.5 % (1.6-2.8) L 06/04/17 16:24 Retic Hgb Equivalent 36.5 pg (28.61-36.33) H 06/04/17 16:24 Sodium 135 mEq/L (136-145) L 06/04/17 05:00 BUN 43 mg/dL (6-20) H 06/04/17 05:00 Creatinine 2.07 mg/dL (0.70-1.30) H 06/04/17 05:00 Est GFR ( Amer) 40 (> 60) L 06/04/17 05:00 Est GFR (Non-Af Amer) 33 (> 60) L 06/04/17 05:00 Glucose 117 mg/dL (70-105) H 06/04/17 05:00 Calcium 8.5 mg/dL (8.6-10.3) L 06/04/17 05:00 - VTE Documentation of Mechanical Device: Venous foot pump, device Consult Discharge Plan - Plan Referrals: NONE,PCP [Primary Care Provider] -
--- NOTE | 2017-06-05 10:37 | Oncology Inp Progress Note ---
<CastilloJolanta L - Last Filed: 06/05/17 17:33> Date of Encounter: 06/05/17 Time of Encounter: 10:37 (1) Hemolytic anemia Current Visit: Yes Status: Chronic Assessment and plan: Blood loss anemia secondary to bilateral TKA 06/02/17. LDH and bilirubin normal making hemolysis very unlikely. No need for therapy at this current time. Awaiting haptoglobin to complete workup. Discussed lab results with patient and patients family today. Patient was given an appointment card to follow up with Dr. Jarquin on outpatient basis. Would recommend continued CBC monitoring at [facility], patient is planned for discharge likely today per primary ortho team. Would avoid transfusion secondary to history as well as associated immune effects related to blood transfusion seen in surgery. Would only transfuse if hemoglobin <7 and with symptoms. 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 Hamilton is doing well this morning, reports pain is controlled to manageable rating. Family at bedside. He denies SOB at rest, chest pain, vertigo or H/A. He does report some dizziness with sitting to standing that shortly resolves with movement. He has had a low grade temp with Tmax 99.1 within past 24 hours. Denies dark colored urine. - Constitutional Vitals: Vital Signs Temp Pulse Resp BP Pulse Ox 06/05/17 10:05 131/55 06/05/17 07:15 98.8 F 70 17 100/52 94 06/05/17 03:49 98.6 F 67 18 116/63 97 06/05/17 00:16 98.9 F 71 20 115/50 95 06/04/17 19:36 99.0 F 67 18 113/46 97 06/04/17 17:03 98.4 F 06/04/17 13:36 99.1 F 71 16 125/62 97 Intake and Output 06/04/17 06/05/17 06/05/17 23:59 07:59 15:59 Intake Total 240 / 240 1300 / 1300 Output Total 970 / 970 920 / 920 400 / 400 Balance -730 / -730 380 / 380 -400 / -400 Intake: IV Fluids 1000 / 1000 Lactated Ringers 1,000 ML @ 75 1000 / 1000 mls/hr IVC .[id number] JAYDEN Rx#: [id number] Oral 240 / 240 300 / 300 Output: Urine 970 / 970 920 / 920 400 / 400 Other: Meal Dinner Percent of Meal Consumed 100% General appearance: cooperative, no acute distress, obese, no febrile - Head Head exam: Present: atraumatic - Respiratory Respiratory exam: Present: CTAB. Absent: respiratory distress - Cardiovascular Cardiovascular exam: Present: RRR, +S1, +S2 - GI/Abdominal GI/Abdominal exam: Present: normal bowel sounds, soft. Absent: tenderness - Extremities Exam Extremities exam: Present: joint swelling, normal capillary refill, pedal edema Additional comments: swelling as expected due to recent surgical procedure - Expanded Lower Extremity Exam Lower leg exam: Present: swelling - Neurological Exam Neurological exam: Present: alert, oriented X3, strengths equal and symetr throughout. Absent: no focal deficits - Psychiatric Psychiatric exam: Present: normal affect, normal mood - Skin Skin exam: Present: normal color, warm Additional comments: Bilateral knee surgical incisions with DD&I, small amount dried blood noted under dressing, no s/s active bleeding Oncology: Obj Data - Labs CBC & Chem 7: 06/05/17 03:24 06/04/17 05:00 Consult Discharge Plan - Plan Referrals: NONE,PCP [Primary Care Provider] - <Howard Jarquin - Last Filed: 06/05/17 17:53> Date of Encounter: 06/05/17 (1) Acute blood loss anemia Current Visit: Yes Status: Acute - Constitutional Vitals: Vital Signs Temp Pulse Resp BP Pulse Ox 06/05/17 16:12 98.9 F 75 16 131/57 96 06/05/17 13:06 99.8 F H 85 17 122/62 95 06/05/17 10:05 131/55 06/05/17 07:15 98.8 F 70 17 100/52 94 06/05/17 03:49 98.6 F 67 18 116/63 97 06/05/17 00:16 98.9 F 71 20 115/50 95 06/04/17 19:36 99.0 F 67 18 113/46 97 Intake and Output 06/05/17 06/05/17 06/06/17 08:59 16:59 00:59 Intake Total 1300 / 1300 120 / 120 Output Total 1070 / 1070 950 / 950 Balance 230 / 230 -950 / -950 120 / 120 Intake: IV Fluids 1000 / 1000 Lactated Ringers 1,000 ML @ 75 1000 / 1000 mls/hr IVC .[id number] JAYDEN Rx#: [id number] Oral 300 / 300 120 / 120 Output: Urine 1070 / 1070 950 / 950 Other: Meal Dinner Percent of Meal Consumed 50% # Voids 1 Oncology: Obj Data - Labs CBC & Chem 7: 06/05/17 03:24 06/04/17 05:00 Labs: Laboratory Results - last 24 hr 06/04/17 06/05/17 06/05/17 09:35 03:24 10:09 Hgb 7.8 L Hct 23.5 L Total Bilirubin 0.5 Direct Bilirubin 0.1 Indirect Bilirubin 0.4 Crossmatch See Detail - Attending Attestation I examined this patient and my medical decision-making was reviewed with the Advanced Practice Nurse. I agree with the documented findings, disposition and treatment plan as described except to the extent set forth below. He is doing well. Very sore from surgery as expected. H/H decreased to 7.8. No evidence of hemolysis with normal bilirubin, LDH and slightly elevated retic. No need for transfusion but would monitor CBC after d/c on Friday or so. Will schedule f/u with me in 6-8 weeks.
[2017-06-05 11:00] LABS: Bilirubin,Direct 0.1 mg/dL (0.0-0.2); Bilirubin,Indirect 0.4 mg/dL (0.0-1.2); Bilirubin,Total 0.5 mg/dL (0.3-1.0)
[2017-06-05] MEDS: *HR* Rivaroxaban 15 MG TABLET PO SCH (17:11)
[2017-06-06] MEDS: *HR* OxyCODONE Immed Rel 5 MG TABLET PO PRN ×3 (08:02→18:42)
[2017-06-06] MEDS: Diltiazem CD (24hr) 240 MG CAPSULE PO SCH (08:04)
[2017-06-06] MEDS: Aspirin 325 MG TABLET PO SCH (08:04)
[2017-06-06] MEDS: Lisinopril 20 MG TABLET PO SCH (08:04)
[2017-06-06 16:04] LABS: Hematocrit 22.3 % (37.5-50.1); Hemoglobin 7.5 g/dL (12.9-16.9)
[2017-06-06 17:01] VITALS: BP 133/61
[2017-06-06] MEDS: *HR* Rivaroxaban 15 MG TABLET PO SCH (17:02)
[2017-06-06] MEDS ORDERED: FLUARIX QUAD 2017-18 36MOS UP/PF 0.5 ML SYRINGE IM ONE (17:19)
--- NOTE | 2017-06-06 17:19 | Orthopedics Progress Note ---
Date of Encounter: 06/06/17 Time of Encounter: 16:45 Subjective Principal diagnosis: bilateral total knee replacement Interval history: Subjective: Patient was seen at bedside doing well without complaints. States he feels well. Objective: Afebrile vital signs stable. Patient laying bed comfortably, alert and oriented - family at bedside Operative extremities: Neurovascularly intact Dressings with serous drainage - change before patient's discharge Incisions intact Calves nontender with reduced swelling, improved compared to previous exam (doppler neg for dvt) Assessment: POD#4 Bilateral TKA robotic assisted Ammon 06/02/17 Plan: Continue with postoperative care Hgb 7.5/ Hematocrit 22.3 - Dr. Jarquin on board, appreciate recommendations - recommend no transfusion unless <7 and symptomatic due to patient's h/o hemolytic anemia. Discharge to [facility] pending insurance authorization. Likely will be here until Friday Objective Vital signs: Vital Signs Temp Pulse Resp BP Pulse Ox 06/06/17 17:00 98.6 F 76 18 133/61 96 06/06/17 10:38 99.6 F 80 15 128/65 97 06/06/17 07:20 99.5 F 84 15 131/73 94 06/05/17 23:49 98.6 F 96 17 116/78 96 06/05/17 20:20 98.5 F 84 17 115/55 94 Intake and Output 06/06/17 06/06/17 06/06/17 07:59 15:59 23:59 Intake Total 240 / 240 240 / 240 Output Total 2775 / 2775 Balance -2535 / -2535 240 / 240 Intake: Oral 240 / 240 240 / 240 Output: Urine 2775 / 2775 Other: Meal Breakfast Percent of Meal Consumed 70% - Labs CBC & BMP: 06/06/17 15:40 06/04/17 05:00 Labs: Abnormal lab results Hgb 7.5 g/dL (12.9-16.9) L 06/06/17 15:40 Hct 22.3 % (37.5-50.1) L 06/06/17 15:40 Reticulocyte # 0.04 M/mcL (0.05-0.10) L 06/04/17 16:24 Percent Retic 1.5 % (1.6-2.8) L 06/04/17 16:24 Retic Hgb Equivalent 36.5 pg (28.61-36.33) H 06/04/17 16:24 Haptoglobin 210 mg/dL (30-200) H 06/04/17 16:24 Sodium 135 mEq/L (136-145) L 06/04/17 05:00 BUN 43 mg/dL (6-20) H 06/04/17 05:00 Creatinine 2.07 mg/dL (0.70-1.30) H 06/04/17 05:00 Est GFR ( Amer) 40 (> 60) L 06/04/17 05:00 Est GFR (Non-Af Amer) 33 (> 60) L 06/04/17 05:00 Glucose 117 mg/dL (70-105) H 06/04/17 05:00 Calcium 8.5 mg/dL (8.6-10.3) L 06/04/17 05:00 - VTE Documentation of Mechanical Device: Venous foot pump, device Consult Discharge Plan - Plan Referrals: NONE,PCP [Primary Care Provider] -
== END 2017-06-06 20:30 | disposition home or self-care (01) | DRG 462 ==
LOC: SAMDAY 06:17 → 3NENU 15:23
PROVIDERS: ADMIT Orthopaedic Surgery; ATTEND Orthopaedic Surgery